=== PATIENT | female | born 1980 | race Caucasian/White ===

== ENCOUNTER 2016-05-22 16:44 | Emergency (ER) | payer MEDICARE, MEDICAID ==
[~2016-05-22] VITALS: Ht 172.7 cm; Wt 100.0 kg
[~2016-05-22 16:44] MED LIST: ALPHAGAN-P 5 ML5 ML OD; AMOXICILLIN 8751 TAB PO; ATENOLOL50 MG PO; BACTRIM DS 8001 TAB PO; BETOPTIC 0.5% 55 ML OD; CALCITRIOL PO; CEPHALEXIN500 M1 PO; CIPRO 500MG TA500 MG PO; CLEOCIN HC150 MG/CAP PO; DESYREL 50MG50 MG PO; DIAMOX SEQUELS500 M1 PO; DOXYCYCLINE 10100 MG PO; EPOGEN 2,002 MU/VIA1 IV; EPOGEN2000 U/ML; EPOGEN2000 U/ML IJ; FLEXERIL5 MG PO; FLONASE NASAL S16 GM NS; FOLIC ACID 11 MG/TA1 PO; GENTAMICIN EYE D5 ML OD; HOMATROPAIRE OD; HUMALOG PEN100 U/ML SQ; HUMALOG100 U/ML SQ; HUMULIN N 10100 U/ML IJ; HUMULIN R100 U/ML IJ; IBUPROFEN600 MG PO; INSULIN 50/5100 U/ML IJ; INSULIN HUMA100 U/M1 SC; LANTUS100 U/ML SC; LANTUS100 U/ML SQ; LASIX 80MG TABL80 MG PO; LEVAQUIN 5500 MG/TA1 PO; LIPITOR 10MG10 MG PO; LIPITOR 40MG TA40 MG; LIPITOR 40MG TA40 MG PO; LORTAB 5/500 501 TAB PO; NEPHROCAP PO; NO HOME MEDICATIONS; NORCO 325 MG-51 TAB PO; NORVASC 10MG10 MG; NORVASC 10MG10 MG PO; NOVLOG SQ; NOVOLOG 100U100 U/M1; NOVOLOG 100U100 U/M1 SC; NOVOLOG FLEX100 U/ML SQ; OMNICEF 300MG300 MG PO; PERCOCET 325 MG1 TA2 PO; PERCOCET 325 MG1 TAB PO; PERCOCET 5/321 UDTAB PO; PHOS LO; PHOS LO PO; PHOSLO667 MG PO; PRED FORTE 1 ML1 ML OD; PREDNISONE20 MG PO; PRILOSEC 20MG20 MG PO; PRINIVIL10 MG PO; PRINIVIL20 MG PO; PRINIVIL5 MG PO; ULTRAM 50MG TAB50 MG PO; VENTOLIN0.09 MG IH; ZESTRIL 10MG10 MG PO; ZOFRAN ODT4 MG PO; [UNRECOGNIZED DRUG - CODE] IV
[2016-05-22 16:52] VITALS: TEMP 98.9
[2016-05-22] MEDS ORDERED: LEVEMIR100 U/ML SQ (16:57)
[2016-05-22 17:25] LABS: PH 9 (5-8); URINE APPEARANCE Hazy; URINE BACTERIA Rare /hpf; URINE BILIRUBIN Negative (NEGATIVE); URINE BLOOD 1+ (NEGATIVE); URINE COLOR Yellow; URINE GLUCOSE 3+ (NEGATIVE); URINE KETONE Negative (NEGATIVE); URINE UROBILINOGEN Negative (NEGATIVE); URINE WBC 20-50 /hpf
[2016-05-22 17:42] LABS: BASO # 0.1 (0.0-0.2); BASO % 0.7 % (0.0-2.0); EOS # 0.7 (0.0-0.7); EOS % 6.6 % (0-4.0); GRAN # 5.8 (1.4-6.5); GRAN % 57.4 % (42.2-75.2); LYMPH # 2.5 (1.2-3.4); LYMPH % 25.1 % (20.0-51.0); MEAN CELL VOLUME 95 fl (80.0-100.0); MEAN CORPUSCULAR HGB CONC 34 g/dl (33.0-37.0); MEAN PLATELET VOLUME 10.2 fl (7.4-10.4); MONO % 9.9 % (1.7-9.3); PLATELET COUNT 244 K/mm3 (130-400); RED BLOOD COUNT 3.37 M/mm3 (4.10-5.30); REDCELL DISTRIBUTION WIDTH-CV 12.5 % (11.5-14.5); WHITE BLOOD COUNT 10.1 K/mm3 (4.8-10.8)
[2016-05-22 17:44] LABS: HEMATOCRIT 31.9 % (37.0-47.0); HEMOGLOBIN 10.9 g/dl (12.5-16.0); MEAN CORPUSCULAR HEMOGLOBIN 32 pg (27.0-31.0)
[2016-05-22 18:04] LABS: ADJUSTED CALCIUM 9.5 mg/dL (8.4-10.2); ALBUMIN 4.3 gm/dL (3.5-5.0); BILIRUBIN,TOTAL 0.8 mg/dL (0.0-1.0); C-REACTIVE PROTEIN 0.7 mg/dL (0.0-0.9); CALCIUM 9.7 mg/dL (8.4-10.2); POTASSIUM 4.1 mmol/L (3.4-5.0); TOTAL PROTEIN 7.9 gm/dL (6.4-8.2)
[2016-05-22 18:15] LABS: CREATININE, serum 4.71 mg/dL (0.52-1.25)
[2016-05-22] MEDS ORDERED: NORCO 325 MG-51 TAB PO (18:24)
[2016-05-22] MEDS ORDERED: CIPRO 500MG TA500 MG PO (18:24)
[2016-05-22 18:49] VITALS: BP 175/77; PULSE 84
== END 2016-05-22 18:50 | disposition home or self-care (01) ==
LOC: COL.ER 16:44
PROVIDERS: Emergency Medicine
DX: R10.2 Pelvic and perineal pain (principal); N18.6 End stage renal disease; Z99.2 Dependence on renal dialysis; R82.99 Other abnormal findings in urine
CPT/HCPCS: J1170

== ENCOUNTER 2016-08-01 21:18 | Emergency (ER) | payer MEDICARE, MEDICAID ==
[~2016-08-01] VITALS: Ht 172.7 cm; Wt 103.0 kg
[~2016-08-01 21:18] MED LIST changes: +LEVEMIR100 U/ML SQ
[2016-08-01 21:34] VITALS: TEMP 98.9
[2016-08-01] MEDS ORDERED: NORCO 325 MG-51 TAB PO (23:49)
[2016-08-01 23:52] VITALS: BP 189/87; PULSE 74
== END 2016-08-01 23:52 | disposition home or self-care (01) ==
LOC: COL.ER 21:18
DX: H40.9 Unspecified glaucoma (principal); H54.41 Blindness, right eye, normal vision left eye; N18.6 End stage renal disease; Z99.2 Dependence on renal dialysis

== ENCOUNTER 2016-09-11 23:31 | Emergency (ER) | payer MEDICARE, MEDICAID ==
[~2016-09-11] VITALS: Ht 172.7 cm; Wt 103.5 kg
[2016-09-11 23:33] VITALS: BP 196/83; TEMP 98.4
[2016-09-12] MEDS ORDERED: AMOXICILLIN875 MG PO (00:41)
[2016-09-12 01:20] VITALS: PULSE 91
== END 2016-09-12 01:20 | disposition home or self-care (01) ==
LOC: COL.ER 23:31
DX: J02.9 Acute pharyngitis, unspecified (principal); H65.192 Other acute nonsuppurative otitis media, left ear; E11.22 Type 2 diabetes mellitus with diabetic chronic kidney disease; N18.6 End stage renal disease; Z99.2 Dependence on renal dialysis; Z79.4 Long term (current) use of insulin; H54.41 Blindness, right eye, normal vision left eye; Z87.891 Personal history of nicotine dependence

== ENCOUNTER 2016-09-13 07:09 | Outpatient (CLI) | payer MEDICARE, MEDICAID ==
[2016-09-13] VITALS (8 sets, daily range): BP systolic 130–187; BP diastolic 50–100; PULSE 67–88; TEMP 97.7–98.1
[~2016-09-13] VITALS: Ht 172.8 cm; Wt 103.0 kg
[~2016-09-13 07:09] MED LIST changes: +AMOXICILLIN875 MG PO
== END 2016-09-13 15:18 | disposition home or self-care (01) ==
LOC: COL.CAR 07:09
DX: T82.848A Pain due to vascular prosthetic devices, implants and grafts, initial encounter (principal); T82.858A Stenosis of other vascular prosthetic devices, implants and grafts, initial encounter; I12.0 Hypertensive chronic kidney disease with stage 5 chronic kidney disease or end stage renal disease; E11.22 Type 2 diabetes mellitus with diabetic chronic kidney disease; N18.6 End stage renal disease; Z99.2 Dependence on renal dialysis; Z79.4 Long term (current) use of insulin
CPT/HCPCS: J7120; Q9967

== ENCOUNTER 2016-12-11 11:49 | Emergency (ER) | payer MEDICARE, MEDICAID ==
[~2016-12-11] VITALS: Ht 170.2 cm; Wt 106.0 kg
[2016-12-11 11:50] VITALS: BP 173/79; PULSE 80; TEMP 98
[2016-12-11] MEDS ORDERED: NORCO 325 MG-51 TAB PO (12:54)
[2016-12-11] MEDS ORDERED: AMOXICILLIN 8751 TAB PO (12:54)
== END 2016-12-11 13:38 | disposition home or self-care (01) ==
LOC: COL.ER 11:49
DX: J32.0 Chronic maxillary sinusitis (principal); Z79.4 Long term (current) use of insulin
CPT/HCPCS: J1170

== ENCOUNTER 2017-06-18 20:04 | Emergency (ER) | payer MEDICARE, MEDICAID ==
[~2017-06-18] VITALS: Ht 172.7 cm; Wt 116.0 kg
[2017-06-18 20:11] VITALS: TEMP 98.6
[2017-06-18] MEDS ORDERED: CLEOCIN HCL300 MG PO (22:07)
[2017-06-18 22:16] VITALS: BP 179/78; PULSE 97
== END 2017-06-18 22:21 | disposition home or self-care (01) ==
LOC: COL.ER 20:04
DX: S62.630B Displaced fracture of distal phalanx of right index finger, initial encounter for open fracture (principal); I10 Essential (primary) hypertension; E11.9 Type 2 diabetes mellitus without complications; Z79.4 Long term (current) use of insulin; Z87.891 Personal history of nicotine dependence; Z99.2 Dependence on renal dialysis; W23.0XXA Caught, crushed, jammed, or pinched between moving objects, initial encounter

== ENCOUNTER → 2017-06-22 | Outpatient (CLI) | payer MEDICARE, MEDICAID ==
[~2017-06-22] VITALS: Ht 172.7 cm; Wt 118.2 kg
[~2017-06-22] MED LIST changes: +CLEOCIN HCL300 MG PO; +IBU400 MG PO; +PROVENTIL0.09 MG/A1 IH; +ZESTRIL 20MG TA20 MG PO; +ZOFRAN 4MG T4 MG/TAB PO
[2017-06-22 09:33] VITALS: BP 152/50; PULSE 88
== END ==
LOC: LIGHT 08:44
DX: J45.909 Unspecified asthma, uncomplicated (principal); E11.9 Type 2 diabetes mellitus without complications; Z79.4 Long term (current) use of insulin; K21.9 Gastro-esophageal reflux disease without esophagitis; I10 Essential (primary) hypertension; Z68.41 Body mass index [BMI] 40.0-44.9, adult; Z71.3 Dietary counseling and surveillance
CPT/HCPCS: G0463

== ENCOUNTER → 2017-07-26 | Outpatient (CLI) | payer MEDICARE, MEDICAID ==
[~2017-07-26] VITALS: Ht 172.7 cm; Wt 119.5 kg
[2017-08-01 08:16] VITALS: BP 120/62; PULSE 92
== END ==
LOC: LIGHT 07-04 09:32
DX: Z01.89 Encounter for other specified special examinations (principal)

== ENCOUNTER → 2017-08-16 | Outpatient (CLI) | payer MEDICARE, MEDICAID ==
[~2017-08-16] VITALS: Ht 172.7 cm; Wt 117.3 kg
[2017-08-16 16:41] VITALS: BP 130/50; PULSE 92
== END ==
LOC: LIGHT 07-19 14:48
DX: J45.909 Unspecified asthma, uncomplicated (principal); E11.9 Type 2 diabetes mellitus without complications; Z79.4 Long term (current) use of insulin; K21.9 Gastro-esophageal reflux disease without esophagitis; I10 Essential (primary) hypertension; Z68.39 Body mass index [BMI] 39.0-39.9, adult; Z71.3 Dietary counseling and surveillance
CPT/HCPCS: G0463

== ENCOUNTER 2017-11-23 07:31 | Outpatient (CLI) | payer MEDICARE, MEDICAID ==
[2017-11-23] VITALS (9 sets, daily range): BP systolic 138–200; BP diastolic 46–76; PULSE 69–84; TEMP 97.9–98.2
[~2017-11-23] VITALS: Ht 172.8 cm; Wt 117.0 kg
== END 2017-11-23 13:45 | disposition home or self-care (01) ==
LOC: COL.CAR 07:31
DX: T80.89XA Other complications following infusion, transfusion and therapeutic injection, initial encounter (principal); I12.0 Hypertensive chronic kidney disease with stage 5 chronic kidney disease or end stage renal disease; E11.22 Type 2 diabetes mellitus with diabetic chronic kidney disease; N18.6 End stage renal disease; Z79.4 Long term (current) use of insulin
CPT/HCPCS: J1644; J2250; J3010; Q9967

== ENCOUNTER 2018-01-02 09:19 | Emergency (ER) | payer MEDICARE, MEDICAID ==
[~2018-01-02] VITALS: Ht 170.2 cm; Wt 112.7 kg
[2018-01-02 09:59] LABS: BASO # 0.1 (0.0-0.2); BASO % 0.5 % (0.0-2.0); EOS # 1.2 (0.0-0.7); EOS % 9.2 % (0-4.0); GRAN # 7.9 (1.4-6.5); GRAN % 59.1 % (42.2-75.2); LYMPH # 3.2 (1.2-3.4); LYMPH % 24.1 % (20.0-51.0); MEAN CELL VOLUME 97 fl (80.0-100.0); MEAN CORPUSCULAR HEMOGLOBIN 33 pg (27.0-31.0); MEAN CORPUSCULAR HGB CONC 34 g/dl (33.0-37.0); MEAN PLATELET VOLUME 10.2 fl (7.4-10.4); MONO # 0.9 (0.1-0.6); MONO % 6.6 % (1.7-9.3); PLATELET COUNT 251 K/mm3 (130-400); RED BLOOD COUNT 3.68 M/mm3 (4.10-5.30); REDCELL DISTRIBUTION WIDTH-CV 12.5 % (11.5-14.5)
[2018-01-02 10:01] LABS: HEMATOCRIT 35.5 % (37.0-47.0)
[2018-01-02 10:10] LABS: BILIRUBIN,TOTAL 0.5 mg/dL (0.0-1.0); C-REACTIVE PROTEIN 1.4 mg/dL (0.0-0.9); CALCIUM 9.4 mg/dL (8.4-10.2); POTASSIUM 4.9 mmol/L (3.4-5.0); TOTAL PROTEIN 7.6 gm/dL (6.4-8.2)
[2018-01-02 10:18] LABS: TROPONIN-I 0.015 ng/mL (0.000-0.034)
[2018-01-02 10:22] LABS: CREATININE, serum 11.6 mg/dL (0.52-1.25)
[2018-01-02 11:24] VITALS: BP 157/90; PULSE 75; TEMP 97.1
== END 2018-01-02 11:25 | disposition home or self-care (01) ==
LOC: COL.ER 09:19
PROVIDERS: Physician Assistant
DX: R10.13 Epigastric pain (principal); R11.10 Vomiting, unspecified; E11.22 Type 2 diabetes mellitus with diabetic chronic kidney disease; N18.6 End stage renal disease; Z99.2 Dependence on renal dialysis; Z79.4 Long term (current) use of insulin; Z98.51 Tubal ligation status
CPT/HCPCS: J1170; J2405

== ENCOUNTER 2018-01-06 10:16 | Day surgery (SDC) | payer MEDICARE, MEDICAID ==
[~2018-01-06] VITALS: Ht 170.2 cm; Wt 114.1 kg
[2018-01-06 11:09] VITALS: BP 179/84; PULSE 87; TEMP 97.1
[2018-01-06] MEDS ORDERED: NORCO 325 MG-101 TAB PO (11:28)
[2018-01-06] MEDS ORDERED: JANUVIA25 MG PO (11:29)
[2018-01-06 13:35] VITALS: BP 151/73; PULSE 79; TEMP 97.3
[2018-01-06 13:50] VITALS: BP 168/105; PULSE 84
[2018-01-06 14:05] VITALS: BP 161/77; PULSE 73
== END 2018-01-06 14:28 | disposition home or self-care (01) ==
LOC: SDCO 10:16
DX: K22.2 Esophageal obstruction (principal); K21.0 Gastro-esophageal reflux disease with esophagitis; E66.9 Obesity, unspecified; E11.22 Type 2 diabetes mellitus with diabetic chronic kidney disease; E11.21 Type 2 diabetes mellitus with diabetic nephropathy; I12.0 Hypertensive chronic kidney disease with stage 5 chronic kidney disease or end stage renal disease; N18.6 End stage renal disease; Z99.2 Dependence on renal dialysis; Z79.4 Long term (current) use of insulin; Z87.891 Personal history of nicotine dependence; K21.9 Gastro-esophageal reflux disease without esophagitis; G89.29 Other chronic pain; D64.9 Anemia, unspecified
CPT/HCPCS: J2704; J7030

== ENCOUNTER → 2018-04-25 | Outpatient (CLI) | payer MEDICARE, MEDICAID ==
[~2018-04-25] VITALS: Ht 170.2 cm; Wt 115.7 kg
[~2018-04-25] MED LIST changes: +JANUVIA25 MG PO; +NORCO 325 MG-101 TAB PO; +PROTONIX20 MG PO
[2018-04-25 14:30] VITALS: BP 150/50; PULSE 84
== END ==
LOC: LIGHT
DX: J45.909 Unspecified asthma, uncomplicated (principal); E11.65 Type 2 diabetes mellitus with hyperglycemia; K21.9 Gastro-esophageal reflux disease without esophagitis; I10 Essential (primary) hypertension; Z68.39 Body mass index [BMI] 39.0-39.9, adult; Z71.3 Dietary counseling and surveillance
CPT/HCPCS: G0463

== ENCOUNTER 2018-08-13 19:03 | Emergency (ER) | payer MEDICARE, MEDICAID ==
[~2018-08-13] VITALS: Ht 172.7 cm; Wt 115.0 kg
[2018-08-13 19:21] VITALS: TEMP 97.4
[2018-08-13 20:34] LABS: HEMOGLOBIN 11.9 g/dl (12.5-16.0); MEAN CELL VOLUME 101 fl (80.0-100.0); MEAN CORPUSCULAR HEMOGLOBIN 33 pg (27.0-31.0); MEAN CORPUSCULAR HGB CONC 33 g/dl (33.0-37.0); PLATELET COUNT 302 K/mm3 (130-400); RED BLOOD COUNT 3.62 M/mm3 (4.10-5.30); REDCELL DISTRIBUTION WIDTH-CV 13.5 % (11.5-14.5)
[2018-08-13 20:41] LABS: HEMATOCRIT 36.6 % (37.0-47.0)
[2018-08-13 20:44] LABS: ALBUMIN 4.3 gm/dL (3.5-5.0); BILIRUBIN,TOTAL 0.4 mg/dL (0.0-1.0); CALCIUM 10.4 mg/dL (8.4-10.2); MAGNESIUM 2.3 mg/dL (1.6-2.3); PHOSPHOROUS 6.9 mg/dL (2.5-4.5); POTASSIUM 4.2 mmol/L (3.4-5.0)
[2018-08-13 20:49] LABS: EOSINOPHIL 6 % (0-4); LYMPHOCYTE 32 % (20.0-51.0); NEUTROPHILS 57 % (42.0-75.2); PLATELET ESTIMATE NORMAL (NORMAL)
[2018-08-13 20:53] LABS: CREATININE, serum 10.39 (0.52-1.25)
[2018-08-13 23:50] VITALS: BP 165/69; PULSE 80
== END 2018-08-13 23:52 | disposition home or self-care (01) ==
LOC: COL.ER 19:03
PROVIDERS: Emergency Medicine
DX: R51 Headache (principal); E10.22 Type 1 diabetes mellitus with diabetic chronic kidney disease; N18.6 End stage renal disease; Z99.2 Dependence on renal dialysis; Z79.4 Long term (current) use of insulin
CPT/HCPCS: J0780; J1170

== ENCOUNTER 2018-08-15 15:48 | Inpatient (IN) | payer MEDICARE, MEDICAID ==
[~2018-08-15] VITALS: Ht 172.7 cm; Wt 119.8 kg
[2018-08-15 17:23] LABS: BASO # 0.1 (0.0-0.2); BASO % 0.7 % (0.0-2.0); EOS # 0.9 (0.0-0.7); EOS % 7.3 % (0-4.0); GRAN # 7.9 (1.4-6.5); GRAN % 62.5 % (42.2-75.2); LYMPH # 2.6 (1.2-3.4); LYMPH % 20.6 % (20.0-51.0); MEAN CELL VOLUME 99 fl (80.0-100.0); MEAN CORPUSCULAR HEMOGLOBIN 32 pg (27.0-31.0); MEAN CORPUSCULAR HGB CONC 32 g/dl (33.0-37.0); MEAN PLATELET VOLUME 10.3 fl (7.4-10.4); MONO # 1.1 (0.1-0.6); MONO % 8.4 % (1.7-9.3); PLATELET COUNT 249 K/mm3 (130-400); RED BLOOD COUNT 3.73 M/mm3 (4.10-5.30); REDCELL DISTRIBUTION WIDTH-CV 13.2 % (11.5-14.5)
[2018-08-15 17:32] LABS: ALBUMIN 4.3 gm/dL (3.5-5.0); BILIRUBIN,TOTAL 0.5 mg/dL (0.0-1.0); C-REACTIVE PROTEIN 1.8 mg/dL (0.0-0.9); MAGNESIUM 2.3 mg/dL (1.6-2.3); POTASSIUM 4.8 mmol/L (3.4-5.0); TOTAL PROTEIN 8.1 gm/dL (6.4-8.2)
[2018-08-15 17:33] LABS: CREATININE, serum 7.84 (0.52-1.25)
[2018-08-15] MEDS ORDERED: PREDFORTE5ML (17:37)
[2018-08-15] MEDS ORDERED: AKTOB 5 ML5 ML (17:38)
[2018-08-15 19:09] VITALS: BP 172/62; PULSE 80; TEMP 98.2
[2018-08-15] MEDS ORDERED: NORVASC 10MG10 MG PO (19:36)
[2018-08-15] MEDS ORDERED: NOVOLOG 100U100 U/M1 SQ (19:50)
[2018-08-15] MEDS ORDERED: COREG 6.256.25 MG/TA PO (19:54)
[2018-08-15] MEDS ORDERED: APRESOLINE 25MG25 MG PO (19:57)
[2018-08-15 20:23] VITALS: BP 172/62; PULSE 84; TEMP 98.2
[2018-08-15 23:55] VITALS: BP 137/52; BP 147/61; PULSE 77; TEMP 98
--- NOTE | 2018-08-16 00:14 | NUR ---
Patient resting in bed watching television. 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 Left eye has good vision. Patient states she had blood drained from behind her left eye yesterday 08/14/18, and she came to the ER d/t pressure/pain to behind left eye and a "migraine-like headache". PRN pain medication is being administered with slight relief. Patient states the pain isn't as bad as when she first came to the ER. States having the lights off help significantly. Will continue to monitor patient.
--- NOTE | 2018-08-16 03:53 | NUR ---
Patient called at 0030 and stated she felt her blood glucose level was low. Noted to be 58. Patient received a cup of OJ and some juliana crackers. Rechecked at 0115 and noted to be 64. Gave an apple with some peanut butter. At 0145 blood glucose level at 83. Patient has rested well since then. No c/o hypoglycemia since eating the apple/PB. Will continue to monitor.
[2018-08-16 04:00] VITALS: BP 125/52; PULSE 85; TEMP 97.6
[2018-08-16 06:25] LABS: BASO # 0.1 (0.0-0.2); BASO % 0.8 % (0.0-2.0); CALCIUM 9.6 mg/dL (8.4-10.2); EOS # 1.4 (0.0-0.7); EOS % 10.6 % (0-4.0); GRAN # 7.3 (1.4-6.5); GRAN % 56.4 % (42.2-75.2); HEMOGLOBIN 10.9 g/dl (12.5-16.0); LYMPH # 3.1 (1.2-3.4); LYMPH % 24.2 % (20.0-51.0); MEAN CELL VOLUME 103 fl (80.0-100.0); MEAN CORPUSCULAR HEMOGLOBIN 32 pg (27.0-31.0); MEAN CORPUSCULAR HGB CONC 31 g/dl (33.0-37.0); MEAN PLATELET VOLUME 10.4 fl (7.4-10.4); MONO % 7.7 % (1.7-9.3); PHOSPHOROUS 7.3 mg/dL (2.5-4.5); PLATELET COUNT 242 K/mm3 (130-400); RED BLOOD COUNT 3.37 M/mm3 (4.10-5.30); REDCELL DISTRIBUTION WIDTH-CV 13.5 % (11.5-14.5)
[2018-08-16 06:26] LABS: CREATININE, serum 9.25 (0.52-1.25)
[2018-08-16 06:28] LABS: HEMATOCRIT 34.8 % (37.0-47.0)
--- NOTE | 2018-08-16 06:53 | NUR ---
Report given to ALFREDA Barber.
[2018-08-16 08:08] VITALS: BP 146/55; PULSE 74; TEMP 97.5
--- NOTE | 2018-08-16 08:33 | NUR ---
REPORT FROM CHARANJIT GANT.
--- NOTE | 2018-08-16 08:33 | NUR ---
PT TO DIALYSIS AT THIS TIME PER WHEEL CHAIR BY STAFF. THIS IS NORMALLY AN OFF DAY FOR PATEINT. NEW ORDERS TO DIALYSIZE TODAY RECIEVED BY DIALYSIS NURSE.
--- NOTE | 2018-08-16 08:50 | NUR ---
PT A/O X4 AM MEDS GIVEN, FLUIDS RESTRICTED PER ORDERS AND REVIEWED WITH PATIENT. PT VERBALIZED THAT SHE IS NOT GOOD AT FOLLOWING FLUID RESTRICTIONS. WILL FOLLOW AND CONTINUE TO ASSIST PATIENT WITH REQUIREMENTS.
[2018-08-16 12:35] VITALS: BP 129/83; PULSE 72; TEMP 99
[2018-08-16 13:02] LABS: TSH w REFLEX 1.4 uIU/mL (0.465-4.680)
--- NOTE | 2018-08-16 14:32 | NUR ---
SW met with patient to discuss discharge planning. Patient lives independently at home with her children. Patient's PCP is Dr Nicholson and she obtains prescriptions from [facility]. Patient does not use any home health services or DME. Patient does not have a DPOA but would like the form. PACHECO provided DPOA form. PACHECO does not anticipate any discharge needs.
[2018-08-16 17:08] VITALS: BP 145/60; PULSE 68; TEMP 97.9
[2018-08-16 19:30] VITALS: BP 147/60; PULSE 72; TEMP 98
--- NOTE | 2018-08-16 22:00 | NUR ---
Patient in bed. Medicated with scheduled Insulin and [place] 10mg 1 tab for left eye/headache pain. Ice pack refilled for headache.
[2018-08-17] VITALS: BP 147/61; PULSE 78; TEMP 98.1
--- NOTE | 2018-08-17 02:38 | NUR ---
COMPLAINS OF HEADACHE. MEDICATED WITH NORCO 10MG 1 TAB AT THIS TIME. PATIENT WATCHING TV.
[2018-08-17 04:00] VITALS: BP 133/51; PULSE 72; TEMP 98.7
--- NOTE | 2018-08-17 04:50 | NUR ---
PATIENT CALLS FOR "2 TYLENOL" FOR LEFT HEADACHE. DOES NOT WANT THE DILAUDID, TOO EARLY TO REPEAT NORCO 10. ICE PACK PROVIDED, SHE DID NOT WANT DR. VIZCARRA CALLED FOR TYLENOL.
[2018-08-17 06:08] LABS: BASO # 0.1 (0.0-0.2); EOS # 1.5 (0.0-0.7); EOS % 13.9 % (0-4.0); GRAN # 5.2 (1.4-6.5); GRAN % 47.6 % (42.2-75.2); HEMOGLOBIN 11.4 g/dl (12.5-16.0); LYMPH # 3.1 (1.2-3.4); LYMPH % 28.1 % (20.0-51.0); MEAN CELL VOLUME 105 fl (80.0-100.0); MEAN CORPUSCULAR HEMOGLOBIN 33 pg (27.0-31.0); MEAN CORPUSCULAR HGB CONC 31 g/dl (33.0-37.0); MEAN PLATELET VOLUME 10.3 fl (7.4-10.4); MONO % 8.9 % (1.7-9.3); PLATELET COUNT 242 K/mm3 (130-400); RED BLOOD COUNT 3.51 M/mm3 (4.10-5.30); REDCELL DISTRIBUTION WIDTH-CV 13.5 % (11.5-14.5)
[2018-08-17 06:12] LABS: HEMATOCRIT 36.9 % (37.0-47.0)
[2018-08-17 06:20] LABS: ALBUMIN 3.8 gm/dL (3.5-5.0); CALCIUM 9.8 mg/dL (8.4-10.2); PHOSPHOROUS 6.9 mg/dL (2.5-4.5)
[2018-08-17 06:22] LABS: CREATININE, serum 7.97 (0.52-1.25)
[2018-08-17 06:23] LABS: POTASSIUM 5.8 mmol/L (3.4-5.0)
--- NOTE | 2018-08-17 06:45 | NUR ---
Patient is going to dialysis at this time. Chart off the floor with patient.
[2018-08-17 11:03] VITALS: BP 153/74; PULSE 93; TEMP 98.5
--- NOTE | 2018-08-17 11:25 | NUR ---
Patient is discharging home. Discharge instructions discussed with patient. No questions verbalized. INT discontinued. She is in a hurry to discharge for an appointment in [place] for her headaches. She knows she has dialysis on Tuesday. There was no appointments ordered. Copies of discharge instructions sent with patient. All belongings packed up and sent with patient. Patient walked out with this nurse.
[2018-08-18 16:43] LABS: KAPPA FREE LIGHT CHAIN-SERUM 16.9 mg/dL (())
== END 2018-08-17 11:30 | disposition home or self-care (01) | DRG 682 ==
LOC: COL.ER 15:48 → SURG 18:14
PROVIDERS: Emergency Medicine; ADMIT Internal Medicine Nephrology
PROC: 5A1D70Z Performance of Urinary Filtration, Intermittent, Less than 6 Hours Per Day (ICD-10-PCS; principal; 2018-08-15)
DX: I12.0 Hypertensive chronic kidney disease with stage 5 chronic kidney disease or end stage renal disease (principal); N18.6 End stage renal disease; I16.1 Hypertensive emergency; Z68.41 Body mass index [BMI] 40.0-44.9, adult; H57.12 Ocular pain, left eye; Z99.2 Dependence on renal dialysis; Z86.69 Personal history of other diseases of the nervous system and sense organs; D72.1 Eosinophilia; E66.9 Obesity, unspecified; E87.79 Other fluid overload
CPT/HCPCS: J1170; J1644; J1815; J2405; J7030

== ENCOUNTER 2018-09-15 08:32 | Day surgery (SDC) | payer MEDICARE, MEDICAID ==
[~2018-09-15] VITALS: Ht 167.6 cm; Wt 118.0 kg
[~2018-09-15 08:32] MED LIST changes: +AKTOB 5 ML5 ML; +APRESOLINE 25MG25 MG PO; +COREG 6.256.25 MG/TA PO; +NOVOLOG 100U100 U/M1 SQ; +PREDFORTE5ML OS
[2018-09-15 09:23] VITALS: BP 171/84; PULSE 88; TEMP 97.8
[2018-09-15 10:15] VITALS: BP 173/78; PULSE 100; TEMP 96.9
--- NOTE | 2018-09-15 10:15 | NUR ---
Patient returned to bay [facility]. Alert and oriented. Ambulated to chair without difficulty. Persisitant cough noted. Vital signs within range for patient. States she would like sprite and muffin. Tolerating well. Call childress within reach, will continue to monitor.
[2018-09-15] MEDS ORDERED: DEXILANT60 MG PO (10:26)
[2018-09-15 10:30] VITALS: BP 158/75; PULSE 93
--- NOTE | 2018-09-15 10:30 | NUR ---
Patient states her cough in improving. Vital signs remain stable. States she is feeing ready to get home. All safety maintained, will continue to monitor.
[2018-09-15 10:45] VITALS: BP 194/81; PULSE 94
--- NOTE | 2018-09-15 10:45 | NUR ---
Patient states she is feeling well and ready to go home. Discharge instructions reviewed with patient, all questions answered. IV removed per orders. Patient to get dressed at this time. Will continue to monitor.
--- NOTE | 2018-09-15 11:03 | NUR ---
Patient brought down to lobby via wheelchair. To be driven home by father Seymour.
== END 2018-09-15 11:03 | disposition home or self-care (01) ==
LOC: SDCO 08:32
DX: K21.0 Gastro-esophageal reflux disease with esophagitis (principal); K22.2 Esophageal obstruction; R13.10 Dysphagia, unspecified; I10 Essential (primary) hypertension; Z79.899 Other long term (current) drug therapy; J45.909 Unspecified asthma, uncomplicated; F41.9 Anxiety disorder, unspecified; G43.809 Other migraine, not intractable, without status migrainosus; H54.40 Blindness, one eye, unspecified eye; G89.29 Other chronic pain; M54.9 Dorsalgia, unspecified; E66.9 Obesity, unspecified; Z68.41 Body mass index [BMI] 40.0-44.9, adult; I77.0 Arteriovenous fistula, acquired; D64.9 Anemia, unspecified; E11.22 Type 2 diabetes mellitus with diabetic chronic kidney disease; I12.0 Hypertensive chronic kidney disease with stage 5 chronic kidney disease or end stage renal disease; N18.6 End stage renal disease; Z79.4 Long term (current) use of insulin; Z99.2 Dependence on renal dialysis
CPT/HCPCS: J2704; J3010; J7030

== ENCOUNTER 2018-10-13 11:29 | Emergency (ER) | payer MEDICARE, MEDICAID ==
[~2018-10-13] VITALS: Ht 172.7 cm; Wt 150.0 kg
[~2018-10-13 11:29] MED LIST changes: +DEXILANT60 MG PO
[2018-10-13 11:30] VITALS: TEMP 97.1
[2018-10-13] MEDS ORDERED: NORCO 325 MG-51 TAB PO (12:32)
[2018-10-13] MEDS ORDERED: FLEXERIL 1010 MG/TAB PO (12:55)
[2018-10-13 13:15] VITALS: BP 190/79; PULSE 72
== END 2018-10-13 13:16 | disposition home or self-care (01) ==
LOC: COL.ER 11:29
DX: M76.32 Iliotibial band syndrome, left leg (principal); M25.551 Pain in right hip; E11.22 Type 2 diabetes mellitus with diabetic chronic kidney disease; N18.9 Chronic kidney disease, unspecified; I12.9 Hypertensive chronic kidney disease with stage 1 through stage 4 chronic kidney disease, or unspecified chronic kidney disease; F17.210 Nicotine dependence, cigarettes, uncomplicated; Z98.51 Tubal ligation status; Z79.4 Long term (current) use of insulin; Z99.2 Dependence on renal dialysis

== ENCOUNTER → 2018-10-25 | Outpatient (CLI) | payer MEDICARE, MEDICAID ==
[~2018-10-25] MED LIST changes: +FLEXERIL 1010 MG/TAB PO
== END ==
LOC: COL.RAD 12:31
DX: J32.9 Chronic sinusitis, unspecified (principal); J34.89 Other specified disorders of nose and nasal sinuses; D72.829 Elevated white blood cell count, unspecified

== ENCOUNTER → 2018-10-27 | Outpatient (CLI) | payer MEDICARE, MEDICAID | LOC: COL.VAS 14:58 | DX: D72.829 Elevated white blood cell count, unspecified (principal) ==

== ENCOUNTER 2019-02-15 22:18 | Emergency (ER) | payer MEDICARE, MEDICAID ==
[~2019-02-15] VITALS: Ht 170.2 cm; Wt 119.0 kg
[2019-02-15 22:35] VITALS: BP 193/89; TEMP 98.2
[2019-02-15 22:58] LABS: BASO # 0.1 (0.0-0.2); BASO % 0.4 % (0.0-2.0); EOS # 0.7 (0.0-0.7); EOS % 5.3 % (0-4.0); GRAN # 7.8 (1.4-6.5); GRAN % 63.1 % (42.2-75.2); HEMOGLOBIN 11.6 g/dl (12.5-16.0); LYMPH # 2.8 (1.2-3.4); LYMPH % 22.8 % (20.0-51.0); MEAN CELL VOLUME 101 fl (80.0-100.0); MEAN CORPUSCULAR HEMOGLOBIN 32 pg (27.0-31.0); MEAN CORPUSCULAR HGB CONC 32 g/dl (33.0-37.0); MEAN PLATELET VOLUME 10.3 fl (7.4-10.4); MONO % 7.9 % (1.7-9.3); PLATELET COUNT 237 K/mm3 (130-400); RED BLOOD COUNT 3.59 M/mm3 (4.10-5.30); REDCELL DISTRIBUTION WIDTH-CV 13.4 % (11.5-14.5)
[2019-02-15 23:00] LABS: HEMATOCRIT 36.2 % (37.0-47.0)
[2019-02-15 23:07] LABS: ALBUMIN 4.3 gm/dL (3.5-5.0); BILIRUBIN,TOTAL 0.4 mg/dL (0.0-1.0); CALCIUM 9.6 mg/dL (8.4-10.2); CREATININE, serum 7.76 (0.52-1.25); MAGNESIUM 1.7 mg/dL (1.6-2.3); PHOSPHOROUS 4.2 mg/dL (2.5-4.5); POTASSIUM 4.7 mmol/L (3.4-5.0); TOTAL PROTEIN 7.7 gm/dL (6.4-8.2)
[2019-02-16 00:01] LABS: COLLECTION METHOD CLEAN CATCH
[2019-02-16 00:13] LABS: PH 9 (5-8); SQUAMOUS EPITHELIAL >50 /hpf; URINE APPEARANCE Cloudy; URINE BACTERIA Rare /hpf; URINE BILIRUBIN Negative (NEGATIVE); URINE BLOOD Negative (NEGATIVE); URINE COLOR Yellow; URINE GLUCOSE 3+ (NEGATIVE); URINE KETONE Negative (NEGATIVE); URINE LEUKOCYTE ESTERASE Negative (NEGATIVE); URINE NITRATE Negative (NEGATIVE); URINE PROTEIN(semi-quant) 2+ (NEGATIVE); URINE UROBILINOGEN Negative (NEGATIVE)
[2019-02-16 01:19] VITALS: PULSE 86
[2019-02-16] MEDS ORDERED: CIPRO 250MG TA250 MG PO (23:19)
[2019-02-16] MEDS ORDERED: PHENERGAN 25 TA25 MG PO (23:20)
== END 2019-02-16 01:19 | disposition home or self-care (01) ==
LOC: COL.ER 22:18
PROVIDERS: Physician Assistant
DX: G43.909 Migraine, unspecified, not intractable, without status migrainosus (principal); I12.0 Hypertensive chronic kidney disease with stage 5 chronic kidney disease or end stage renal disease; E11.22 Type 2 diabetes mellitus with diabetic chronic kidney disease; E11.65 Type 2 diabetes mellitus with hyperglycemia; N18.6 End stage renal disease; R19.7 Diarrhea, unspecified; J45.909 Unspecified asthma, uncomplicated; F17.210 Nicotine dependence, cigarettes, uncomplicated; Z98.890 Other specified postprocedural states; Z99.2 Dependence on renal dialysis; Z79.4 Long term (current) use of insulin
CPT/HCPCS: J0780; J1200; J1815; J2405

== ENCOUNTER 2019-02-16 21:58 | Emergency (ER) | payer MEDICARE, MEDICAID ==
[~2019-02-16] VITALS: Ht 172.7 cm; Wt 119.0 kg
[2019-02-16 22:02] VITALS: BP 191/80; TEMP 97.3
[2019-02-16 22:15] LABS: BASO # 0.1 (0.0-0.2); BASO % 0.4 % (0.0-2.0); EOS # 0.8 (0.0-0.7); EOS % 4.8 % (0-4.0); GRAN # 12.1 (1.4-6.5); GRAN % 71.1 % (42.2-75.2); HEMOGLOBIN 11.8 g/dl (12.5-16.0); LYMPH # 2.9 (1.2-3.4); MEAN CELL VOLUME 100 fl (80.0-100.0); MEAN CORPUSCULAR HEMOGLOBIN 33 pg (27.0-31.0); MEAN CORPUSCULAR HGB CONC 32 g/dl (33.0-37.0); MONO % 6.1 % (1.7-9.3); PLATELET COUNT 239 K/mm3 (130-400); RED BLOOD COUNT 3.63 M/mm3 (4.10-5.30); REDCELL DISTRIBUTION WIDTH-CV 13.4 % (11.5-14.5)
[2019-02-16 22:16] LABS: HEMATOCRIT 36.4 % (37.0-47.0)
[2019-02-16 22:27] LABS: ALBUMIN 4.4 gm/dL (3.5-5.0); BILIRUBIN,TOTAL 0.4 mg/dL (0.0-1.0); C-REACTIVE PROTEIN 2.7 mg/dL (0.0-0.9); MAGNESIUM 1.8 mg/dL (1.6-2.3); PHOSPHOROUS 5.7 mg/dL (2.5-4.5); POTASSIUM 4.7 mmol/L (3.4-5.0)
[2019-02-16] MEDS ORDERED: CIPRO 250MG TA250 MG PO (23:19)
[2019-02-16] MEDS ORDERED: PHENERGAN 25 TA25 MG PO (23:20)
[2019-02-17 00:34] VITALS: PULSE 89
== END 2019-02-17 00:31 | disposition home or self-care (01) ==
LOC: COL.ER 21:58
PROVIDERS: Emergency Medicine
DX: N39.0 Urinary tract infection, site not specified (principal); R11.10 Vomiting, unspecified; I12.0 Hypertensive chronic kidney disease with stage 5 chronic kidney disease or end stage renal disease; N18.6 End stage renal disease; Z99.2 Dependence on renal dialysis; Z79.4 Long term (current) use of insulin
CPT/HCPCS: J0780; J1170; J2405; Q9967

== ENCOUNTER 2019-04-12 19:48 | Emergency (ER) | payer MEDICARE, MEDICAID ==
[~2019-04-12] VITALS: Ht 172.7 cm; Wt 117.9 kg
[~2019-04-12 19:48] MED LIST changes: +CIPRO 250MG TA250 MG PO; +PHENERGAN 25 TA25 MG PO
[2019-04-12 19:54] VITALS: TEMP 99.1
[2019-04-12 20:51] VITALS: BP 173/73
[2019-04-12] MEDS ORDERED: MEDROL 4MG DOSPA4 MG PO (22:01)
[2019-04-12] MEDS ORDERED: DOXYCYCLINE 10100 MG PO (22:01)
[2019-04-12 22:19] VITALS: PULSE 107
== END 2019-04-12 22:17 | disposition home or self-care (01) ==
LOC: COL.ER 19:48
DX: J40 Bronchitis, not specified as acute or chronic (principal); J44.9 Chronic obstructive pulmonary disease, unspecified; E11.22 Type 2 diabetes mellitus with diabetic chronic kidney disease; I12.0 Hypertensive chronic kidney disease with stage 5 chronic kidney disease or end stage renal disease; N18.6 End stage renal disease; Z99.2 Dependence on renal dialysis; Z87.891 Personal history of nicotine dependence; Z79.4 Long term (current) use of insulin
CPT/HCPCS: J7512

== ENCOUNTER 2019-10-19 05:51 | Outpatient (CLI) | payer MEDICARE, MEDICAID ==
[2019-10-19] VITALS (9 sets, daily range): BP systolic 129–150; BP diastolic 59–70; PULSE 77–88; TEMP 98.5
[~2019-10-19] VITALS: Ht 172.8 cm; Wt 121.7 kg
[~2019-10-19 05:51] MED LIST changes: +MEDROL 4MG DOSPA4 MG PO
--- NOTE | 2019-10-19 08:00 | NUR ---
Pt to procedure.
--- NOTE | 2019-10-19 08:35 | NUR ---
SEE MERGE DOCUMENTATION FOR MEDICATION ADMINISTRATION TIMES AND INTRA/POST PROCEDURE SEDATION ASSESSMENTS.
--- NOTE | 2019-10-19 11:25 | NUR ---
Discharge instructions given to pt.pt verbalizes understanding.INT removed,catheter tip intact.Pt escorted out via wheelchair by this nurse.
== END 2019-10-19 11:46 | disposition home or self-care (01) ==
LOC: COL.CAR 05:51
DX: T82.898A Other specified complication of vascular prosthetic devices, implants and grafts, initial encounter (principal); E11.22 Type 2 diabetes mellitus with diabetic chronic kidney disease; N18.6 End stage renal disease; Z99.2 Dependence on renal dialysis; Z88.1 Allergy status to other antibiotic agents; Z88.8 Allergy status to other drugs, medicaments and biological substances; Z79.4 Long term (current) use of insulin; F17.210 Nicotine dependence, cigarettes, uncomplicated
CPT/HCPCS: C1894; J1644; J2250; J3010; J7050; Q9967

== ENCOUNTER 2019-11-12 04:03 | Inpatient (IN) | payer MEDICARE, MEDICAID ==
[~2019-11-12] VITALS: Ht 172.7 cm; Wt 119.7 kg
[2019-11-12 04:36] LABS: BASO # 0.1 (0.0-0.2); BASO % 0.6 % (0.0-2.0); EOS # 1.7 (0.0-0.7); EOS % 9.6 % (0-4.0); GRAN # 10.2 (1.4-6.5); GRAN % 56.6 % (42.2-75.2); HEMOGLOBIN 12.1 g/dl (12.5-16.0); LYMPH # 4.7 (1.2-3.4); LYMPH % 25.9 % (20.0-51.0); MEAN CELL VOLUME 98 fl (80.0-100.0); MEAN CORPUSCULAR HEMOGLOBIN 32 pg (27.0-31.0); MEAN CORPUSCULAR HGB CONC 33 g/dl (33.0-37.0); MEAN PLATELET VOLUME 9.7 fl (7.4-10.4); MONO # 1.2 (0.1-0.6); MONO % 6.9 % (1.7-9.3); PLATELET COUNT 265 K/mm3 (130-400); RED BLOOD COUNT 3.76 M/mm3 (4.10-5.30); REDCELL DISTRIBUTION WIDTH-CV 13.1 % (11.5-14.5)
[2019-11-12 04:45] LABS: ACETONE,SERUM NEGATIVE
[2019-11-12 04:47] LABS: ALANINE AMINOTRANSFERASE 22 U/L (4-34); ALBUMIN 4.6 gm/dL (3.5-5.0); ALKALINE PHOSPHATASE 326 U/L (50-136); ANION GAP 14 mmol/L (7-16); AST,SGOT 23 U/L (15-37); BILIRUBIN,TOTAL 0.5 mg/dL (0.0-1.0); BLOOD UREA NITROGEN 49 mg/dL (7-17); C-REACTIVE PROTEIN 1.6 mg/dL (0.0-0.9); CALCIUM 9.7 mg/dL (8.4-10.2); CARBON DIOXIDE 26 mmol/L (22-30); CHLORIDE 95 mmol/L (98-107); GLUCOSE 228 mg/dL (74-106); LIPASE 79 U/L (23-300); MAGNESIUM 2.2 mg/dL (1.6-2.3); POTASSIUM 4.6 mmol/L (3.4-5.0); SODIUM 135 mmol/L (137-145); TOTAL PROTEIN 8.7 gm/dL (6.4-8.2)
[2019-11-12 10:42] VITALS: BP 136/53; PULSE 80; TEMP 98.2
[2019-11-12 12:00] VITALS: BP 136/53; PULSE 80; TEMP 98.2
--- NOTE | 2019-11-12 12:00 | NUR ---
Patient admitted to [facility]. rounded. Orders obtained. Inital, 5 page & med rec completed. Patient falls asleep easy. Tele on. Int. Restricted extremity bracelet on.
[2019-11-12 15:53] VITALS: BP 164/61; PULSE 87; TEMP 98.2
[2019-11-12] MEDS ORDERED: RENVELA800 MG PO ×2 (16:24→18:52)
[2019-11-12] MEDS ORDERED: VELPHORO PO (16:25)
--- NOTE | 2019-11-12 16:38 | NUR ---
Pilot Boat Captain met with the patient to complete initial intake. The patient lives in [place] with her two teen kids ages 14 and 15. The patient denies DME use and is independent with ADLs. The patient does not have a PCP but is interested in setting up with Dr. Kiser. The patient receives medicaitons from [facility] with no difficulties. The patient does not have advanced directives but was interested in a DPOA-HC form. Form provided. The patient states she is not and no children over 18. She state she would have her mother, Aixa # [phone], make any decision. The patient plans to return home at discharge, her girlfriend will provide transportation. PACHECO contacted Dr. Kiser's office. Sapna spoke to the patient via speaker phone and will give the patient information to Dr. Kiser to review. If he will accept the patient, Sapna with contact this PACHECO to set up appointment. Will continue to monitor.
[2019-11-12] MEDS ORDERED: NOVOLOG 100U100 U/M1 SQ (18:48)
[2019-11-12 19:30] VITALS: BP 176/77; PULSE 82; TEMP 98.3
--- NOTE | 2019-11-12 19:41 | NUR ---
Patient resting in bed feeling better this eveing. Less anxious/frustrated. This afternoon she did threaten to leave AMA. Nikki Carl called this nurse and wanted exceptions made to diet for patient to stay. Diet Pepsi provided to patient & ice chip per her request. Patient also provided with fan at bedside. Patient requested something for anxiety & Xanax was ordered & given. Patient tolerated dinner. home insulin regiment. Home med list corrections made & re ordered per Verbal order. Plans for Egd tmrw after noon after dialysis. Npo oooo. Bedside report to Raquel.
--- NOTE | 2019-11-12 21:15 | NUR ---
PT IN BED. WAS GIVEN SNACK EARLIER PER HER REQUEST. HAS INT TO RIGHT AC, FLUSHES EASILY. IS ALERT AND ORIENTED X4. CONSENT OBTAINED FOR EGD IN AM. HS INSULIN GIVEN WELL NORCO FOR PAIN. BP ELEVATED, HYDRALAZINE GIVEN. IS TO BE NPO AFTER MIDNIGHT.
--- NOTE | 2019-11-12 23:00 | NUR ---
OUT IN HALLWAY, GOES TO VENDING MACHINE FOR SNACK.
[2019-11-12 23:21] VITALS: BP 184/74; PULSE 86; TEMP 98.5
--- NOTE | 2019-11-13 | NUR ---
NPO for procedure in the afternoon.
[2019-11-13 04:00] VITALS: BP 152/66; PULSE 88; TEMP 98.1
--- NOTE | 2019-11-13 06:00 | NUR ---
Scheduled PO med given with sip of water.
[2019-11-13 07:11] VITALS: BP 157/65; PULSE 81; TEMP 98.2
--- NOTE | 2019-11-13 07:39 | NUR ---
Patient up in room. Verbalizes that she is tired of being in the hospital and it is making her feel confined. Feels that she has extra fluid on her and would like to get dialysis done to try to feel a little better. Patient at this time is in agreeance of the plan of dialysis this morning and then EGD this afternoon. Patient removed telemetry box and does not want to wear. Requests to take a shower at this time. Patient was initially refusing to have IV site covered for shower, explain why we cover the IV when showering, patient agrees to have IV covered. Gets in shower at this time. Denies additional needs.
--- NOTE | 2019-11-13 08:55 | NUR ---
Patient ambulates across [place] to dialysis with Katrina.
[2019-11-13 09:22] LABS: BASO # 0.1 (0.0-0.2); BASO % 0.7 % (0.0-2.0); EOS # 1.2 (0.0-0.7); EOS % 8.8 % (0-4.0); GRAN # 8.1 (1.4-6.5); GRAN % 61.4 % (42.2-75.2); HEMATOCRIT 32.9 % (37.0-47.0); HEMOGLOBIN 10.7 g/dl (12.5-16.0); LYMPH % 22.5 % (20.0-51.0); MEAN CELL VOLUME 99 fl (80.0-100.0); MEAN CORPUSCULAR HEMOGLOBIN 32 pg (27.0-31.0); MEAN CORPUSCULAR HGB CONC 33 g/dl (33.0-37.0); MEAN PLATELET VOLUME 9.9 fl (7.4-10.4); MONO # 0.8 (0.1-0.6); MONO % 6.1 % (1.7-9.3); PLATELET COUNT 215 K/mm3 (130-400); RED BLOOD COUNT 3.33 M/mm3 (4.10-5.30); REDCELL DISTRIBUTION WIDTH-CV 13.3 % (11.5-14.5)
[2019-11-13 09:33] LABS: ALBUMIN 4.1 gm/dL (3.5-5.0); CALCIUM 9.3 mg/dL (8.4-10.2); CREATININE, serum 13.17 (0.52-1.25); PHOSPHOROUS 6.7 mg/dL (2.5-4.5); POTASSIUM 4.9 mmol/L (3.4-5.0)
--- NOTE | 2019-11-13 09:53 | NUR ---
Initial visit; Patient appeared to dedline spiritual care.
--- NOTE | 2019-11-13 10:25 | NUR ---
Remains in dialysis, sleeping in recliner chair.
[2019-11-13 12:00] VITALS: BP 165/81; PULSE 88; TEMP 98.8
--- NOTE | 2019-11-13 12:29 | NUR ---
Receive call from Katrina in dialysis. Patient has completed dialysis and returned to room at this time.
--- NOTE | 2019-11-13 12:37 | NUR ---
Sitting up in bed talking on cell phone. Is ready to get EGD done so that she can go home. Denies needs at this time.
--- NOTE | 2019-11-13 12:55 | NUR ---
Sitting up in bed watching TV. Is ready to have EGD completed. Provided gown for the patient to change into. Patient denies any additional needs at this time.
--- NOTE | 2019-11-13 13:45 | NUR ---
Patient to endoscopy via cart at this time.
--- NOTE | 2019-11-13 14:21 | NUR ---
Dr. Benitez notified that patient EGD completed and she is requesting to go home as soon as possible. Dr. Benitez agrees to discharge.
[2019-11-13 14:29] VITALS: BP 182/100; PULSE 88; TEMP 98.6
--- NOTE | 2019-11-13 14:31 | NUR ---
Waste Water Operator attempted to contact Sapna with Dr. Kiser's office regarding patient acceptance, left message.
--- NOTE | 2019-11-13 14:31 | NUR ---
Patient back to room from endoscopy via cart. Ambulates from cart back into bed in room. Denies pain. Patient says that she is going to leave here shortly. Explain that we would like for her to eat and drink and we will work on discharge paperwork. Patient says that her sister will be coming to pick her up. Sitting up in bed drinking diet Pepsi and provided patient with sandwich tray.
--- NOTE | 2019-11-13 14:41 | NUR ---
Sapna with Dr. Kiser's office contacted . Dr. Kiser has not informed Sapna of his decision as of yet. Will continue to monitor.
[2019-11-13 14:43] VITALS: BP 190/87; PULSE 92
--- NOTE | 2019-11-13 14:44 | NUR ---
Patient sitting up in bed. Tolerates eating and drinking without difficulty. Requesting to leave as soon as possible. Explain that we will go over her discharge instructions and remove IV at this time. Patient says that her blood pressures are where they normally run.
[2019-11-13 14:56] VITALS: BP 197/94; PULSE 87
--- NOTE | 2019-11-13 14:56 | NUR ---
Patient BP elevated, patient says that it is not elevated for her. Offered to administer hydralazine as prescribed and patient declines to take. Discharge instructions were reviewed with the patient. Questions answered. Patient verbalizes understanding and signs discharge paperwork. Discharge packet provided to the patient. Patient has all belongings. Has called sister to come to pick her up.
--- NOTE | 2019-11-13 14:58 | NUR ---
The patient is to discharge home today, 11/12. SW informed the patient and the patient's nurse that Sapna with Dr. Kiser's office will be contacting the patient and this SW once a decision is made. The patient was in agreeance. There are no additional needs at this time.
--- NOTE | 2019-11-13 15:00 | NUR ---
Patient explains that her sister will be here to pick her up any minute and that she is ready to go. Assisted out to POV via wheel chair with all personal belongings.
== END 2019-11-13 15:00 | disposition home or self-care (01) | DRG 391 ==
LOC: COL.ER 04:03 → SURG 07:13
PROVIDERS: Emergency Medicine; Internal Medicine Gastroenterology; ADMIT Internal Medicine Nephrology
PROC: 5A1D70Z Performance of Urinary Filtration, Intermittent, Less than 6 Hours Per Day (ICD-10-PCS; 2019-11-12)
PROC: 0DJ08ZZ Inspection of Upper Intestinal Tract, Via Natural or Artificial Opening Endoscopic (ICD-10-PCS; principal; 2019-11-13 14:00)
DX: K29.30 Chronic superficial gastritis without bleeding (principal); N18.6 End stage renal disease; I12.0 Hypertensive chronic kidney disease with stage 5 chronic kidney disease or end stage renal disease; K20.9 Esophagitis, unspecified; H54.413A Blindness right eye category 3, normal vision left eye; E66.9 Obesity, unspecified; E11.22 Type 2 diabetes mellitus with diabetic chronic kidney disease; J45.909 Unspecified asthma, uncomplicated; K27.9 Peptic ulcer, site unspecified, unspecified as acute or chronic, without hemorrhage or perforation; G89.29 Other chronic pain; M54.9 Dorsalgia, unspecified; F17.210 Nicotine dependence, cigarettes, uncomplicated; D63.1 Anemia in chronic kidney disease; K21.9 Gastro-esophageal reflux disease without esophagitis; Z98.51 Tubal ligation status; K30 Functional dyspepsia
CPT/HCPCS: C9113; J1170; J1644; J1815; J2405; J2550; J2704; J7030; Q5105

== ENCOUNTER 2019-12-24 09:08 | Inpatient (IN) | payer MEDICARE, MEDICAID ==
[~2019-12-24] VITALS: Ht 170.2 cm; Wt 125.6 kg
[~2019-12-24 09:08] MED LIST changes: +RENVELA800 MG PO; +VELPHORO PO
[2019-12-24 09:50] LABS: BASO # 0.1 (0.0-0.2); BASO % 0.6 % (0.0-2.0); EOS # 1.2 (0.0-0.7); EOS % 6.6 % (0-4.0); GRAN # 13.7 (1.4-6.5); HEMOGLOBIN 10.9 g/dl (12.5-16.0); LYMPH # 2.3 (1.2-3.4); LYMPH % 12.2 % (20.0-51.0); MEAN CELL VOLUME 100 fl (80.0-100.0); MEAN CORPUSCULAR HEMOGLOBIN 32 pg (27.0-31.0); MEAN CORPUSCULAR HGB CONC 32 g/dl (33.0-37.0); MONO # 1.3 (0.1-0.6); MONO % 7.2 % (1.7-9.3); PLATELET COUNT 247 K/mm3 (130-400); RED BLOOD COUNT 3.44 M/mm3 (4.10-5.30); REDCELL DISTRIBUTION WIDTH-CV 13.6 % (11.5-14.5)
[2019-12-24 09:51] LABS: HEMATOCRIT 34.4 % (37.0-47.0)
[2019-12-24 10:06] LABS: ALBUMIN 4.6 gm/dL (3.5-5.0); BILIRUBIN,TOTAL 0.8 mg/dL (0.0-1.0); CREATININE, serum 10.22 (0.52-1.25); MAGNESIUM 2.3 mg/dL (1.6-2.3); PHOSPHOROUS 5.4 mg/dL (2.5-4.5); TOTAL PROTEIN 8.3 gm/dL (6.4-8.2)
[2019-12-24 16:00] VITALS: BP 178/44; PULSE 96; TEMP 98
--- NOTE | 2019-12-24 16:30 | NUR ---
PATIENT ADMITED INTO ROOM 307 FROM ER WITH SOA/FLUID OVERLOAD. PATIENT IS SCHEDULED FOR DIALYSIS TODAY BUT STATES SHE CAN'T WAIT TILL 1530. PATIENT SENT TO DIALYSIS STRAIGHT FROM ER AND THEN TO MEDICAL. HEAD TO TOE ASSESSMENT COMPLETE. LEFT FORARM FISTULA, RIGHT FORARM IV TO INT. RENAL DIET. FLUID RESTRICTION. INDEPENDENT IN ROOM. BLIND IN RIGHT EYE. TELE INPLACE.
[2019-12-24] MEDS ORDERED: NORCO 325 MG-7.1 TAB PO (17:02)
--- NOTE | 2019-12-24 19:30 | NUR ---
Bedside shift report received, assumed care for diesel roller operator. Assessment complete. A&Ox3. VS stable. INT to right FA flushes without difficulty. Denies nausea/shortness of breath. C/O pain to back rating 8/10 on pain scale-described as throbbing-norco given per dr order. Requesting anxiety med as well-given per order. Plan of care discussed for this shift to include pain control/monitoring on tele. Verbalizes understanding. Call light in reach. Will monitor.
[2019-12-24 20:09] VITALS: BP 131/58; PULSE 91; TEMP 99.2
[2019-12-24 21:27] VITALS: TEMP 99.2
[2019-12-24 23:40] VITALS: BP 150/65; PULSE 82; TEMP 98.7
[2019-12-24 23:44] VITALS: BP 150/65
[2019-12-25 03:39] VITALS: BP 155/59; PULSE 81; TEMP 98.1
--- NOTE | 2019-12-25 03:40 | NUR ---
Called with c/o pain to back-rating pain 8/10 on pain scale-described as throbbing. Hydrocodone given per dr order. VS remain WNL-slight hypertensive-acceptable per hydralazine parameters. Denies nausea/shortness of breath. Call light in reach. Will monitor.
--- NOTE | 2019-12-25 05:30 | NUR ---
Patient refusing to wear tele. States she will not put it back on even after getting new stickers and helping remove adhesive. Notified telehealth case manager. Will notify provider as well.
[2019-12-25 06:58] LABS: BASO # 0.1 (0.0-0.2); BASO % 0.6 % (0.0-2.0); EOS # 1.1 (0.0-0.7); EOS % 9.9 % (0-4.0); GRAN # 6.7 (1.4-6.5); GRAN % 58.4 % (42.2-75.2); LYMPH # 2.6 (1.2-3.4); LYMPH % 22.5 % (20.0-51.0); MEAN CELL VOLUME 103 fl (80.0-100.0); MEAN CORPUSCULAR HGB CONC 32 g/dl (33.0-37.0); MEAN PLATELET VOLUME 10.4 fl (7.4-10.4); MONO # 0.9 (0.1-0.6); MONO % 8.2 % (1.7-9.3); PLATELET COUNT 226 K/mm3 (130-400); RED BLOOD COUNT 2.85 M/mm3 (4.10-5.30)
[2019-12-25 07:09] LABS: ALBUMIN 4.1 gm/dL (3.5-5.0); CALCIUM 9.2 mg/dL (8.4-10.2); CREATININE, serum 8.06 (0.52-1.25); POTASSIUM 5.5 mmol/L (3.4-5.0)
[2019-12-25 07:12] LABS: HEMATOCRIT 29.2 % (37.0-47.0); HEMOGLOBIN 9.2 g/dl (12.5-16.0); MEAN CORPUSCULAR HEMOGLOBIN 32 pg (27.0-31.0)
[2019-12-25 07:26] VITALS: BP 143/54; PULSE 81; TEMP 98.6
--- NOTE | 2019-12-25 07:55 | NUR ---
Pt assessment complete. Pt is sitting up in bed eating upon entry, she is A/O x4. Her breathing is even and unlabored on RA. Pt denies SOB. No pain at this time. Refusing tele this am. No N/V. No needs at this time. Call light within reach.
--- NOTE | 2019-12-25 12:19 | NUR ---
Discharge paperwork and instructions reviewed with patient. All questions answered at this time. IV to RAC dc'd catheter tip intact. Pt wheeled out at this itme.
== END 2019-12-25 12:20 | disposition home or self-care (01) | DRG 640 ==
LOC: COL.ER 09:08 → MEDICAL 11:16
PROVIDERS: Emergency Medicine; Nurse Practitioner; ADMIT Internal Medicine Nephrology
PROC: 5A1D70Z Performance of Urinary Filtration, Intermittent, Less than 6 Hours Per Day (ICD-10-PCS; principal; 2019-12-25)
DX: E87.5 Hyperkalemia (principal); N18.6 End stage renal disease; I12.0 Hypertensive chronic kidney disease with stage 5 chronic kidney disease or end stage renal disease; E87.70 Fluid overload, unspecified; M54.9 Dorsalgia, unspecified; G89.29 Other chronic pain; D64.9 Anemia, unspecified; J45.909 Unspecified asthma, uncomplicated; G43.909 Migraine, unspecified, not intractable, without status migrainosus; E66.9 Obesity, unspecified; E21.3 Hyperparathyroidism, unspecified; Z98.51 Tubal ligation status; F32.9 Major depressive disorder, single episode, unspecified; F17.210 Nicotine dependence, cigarettes, uncomplicated; H54.41 Blindness, right eye, normal vision left eye
CPT/HCPCS: J1644; J1815; J2405; J7030; Q5105

== ENCOUNTER 2020-03-17 07:57 | Emergency (ER) | payer MEDICARE, MEDICAID ==
[~2020-03-17] VITALS: Ht 172.7 cm; Wt 119.0 kg
[~2020-03-17 07:57] MED LIST changes: +NORCO 325 MG-7.1 TAB PO
[2020-03-17 08:08] VITALS: TEMP 97.8
[2020-03-17 08:58] LABS: ALBUMIN 4.6 gm/dL (3.5-5.0); BILIRUBIN,TOTAL 0.5 mg/dL (0.0-1.0); CREATININE, serum 12.13 (0.52-1.25); POTASSIUM 5.1 mmol/L (3.4-5.0); TOTAL PROTEIN 8.1 gm/dL (6.4-8.2)
[2020-03-17 09:04] LABS: BASO # 0.1 (0.0-0.2); BASO % 0.7 % (0.0-2.0); EOS # 0.7 (0.0-0.7); EOS % 4.5 % (0-4.0); GRAN # 10.2 (1.4-6.5); GRAN % 66.8 % (42.2-75.2); HEMATOCRIT 38.8 % (37.0-47.0); HEMOGLOBIN 12.5 g/dl (12.5-16.0); LYMPH # 3.2 (1.2-3.4); LYMPH % 21.2 % (20.0-51.0); MEAN CELL VOLUME 100 fl (80.0-100.0); MEAN CORPUSCULAR HEMOGLOBIN 32 pg (27.0-31.0); MEAN CORPUSCULAR HGB CONC 32 g/dl (33.0-37.0); MONO % 6.3 % (1.7-9.3); PLATELET COUNT 315 K/mm3 (130-400); RED BLOOD COUNT 3.88 M/mm3 (4.10-5.30); REDCELL DISTRIBUTION WIDTH-CV 13.2 % (11.5-14.5)
[2020-03-17 09:09] LABS: TROPONIN-I 0.013 ng/mL (0.000-0.035)
[2020-03-17 09:13] VITALS: BP 184/80; PULSE 95
== END 2020-03-17 09:13 | disposition left against medical advice (07) ==
LOC: COL.ER 07:57
PROVIDERS: Emergency Medicine
DX: N18.6 End stage renal disease (principal); R10.9 Unspecified abdominal pain; M54.9 Dorsalgia, unspecified; Z88.1 Allergy status to other antibiotic agents; Z88.6 Allergy status to analgesic agent; Z79.4 Long term (current) use of insulin
CPT/HCPCS: J1200; J2765

== ENCOUNTER → 2021-01-28 | Outpatient (CLI) | payer MEDICARE, MEDICAID | LOC: COL.RAD 01-21 08:00 | DX: K44.9 Diaphragmatic hernia without obstruction or gangrene (principal) | CPT/HCPCS: A9541 ==

== ENCOUNTER 2021-02-05 18:31 | Emergency (ER) | payer MEDICARE, MEDICAID ==
[2021-03-23] MEDS ORDERED: FLEXERIL 1010 MG/TAB PO (11:40)
== END 2021-02-05 20:21 | disposition left against medical advice (07) ==
LOC: COL.ER 18:31
DX: R52 Pain, unspecified (principal)

== ENCOUNTER 2021-02-06 07:23 | Emergency (ER) | payer MEDICARE, MEDICAID ==
[~2021-02-06] VITALS: Ht 170.2 cm; Wt 121.5 kg
[2021-02-06 09:00] LABS: BASO # 0.1 K/mm3 (0.0-0.2); BASO % 0.7 % (0.0-2.0); EOS # 0.7 K/mm3 (0.0-0.7); EOS % 5.2 % (0-4.0); GRAN # 6.5 K/mm3 (1.4-6.5); GRAN % 48.2 % (42.2-75.2); LYMPH # 4.9 K/mm3 (1.2-3.4); LYMPH % 36.4 % (20.0-51.0); MEAN CELL VOLUME 98 fl (80.0-100.0); MEAN CORPUSCULAR HEMOGLOBIN 32 pg (27.0-31.0); MEAN CORPUSCULAR HGB CONC 33 g/dl (33.0-37.0); MEAN PLATELET VOLUME 9.8 fl (7.4-10.4); MONO # 1.2 K/mm3 (0.1-0.6); MONO % 9.1 % (1.7-9.3); PLATELET COUNT 265 K/mm3 (130-400); RED BLOOD COUNT 3.76 M/mm3 (4.10-5.30); REDCELL DISTRIBUTION WIDTH-CV 13.3 % (11.5-14.5)
[2021-02-06 09:03] LABS: HEMATOCRIT 36.9 % (37.0-47.0)
[2021-02-06 09:18] LABS: ALBUMIN 3.6 gm/dL (3.5-5.0); BILIRUBIN,TOTAL 0.4 mg/dL (0.2-1.2); CALCIUM 8.9 mg/dL (8.4-10.2); CREATININE, serum 7.7 mg/dL (0.57-1.11); TOTAL PROTEIN 7.5 gm/dL (6.2-8.1)
[2021-02-06 11:30] VITALS: BP 152/74; PULSE 90; TEMP 97.9
== END 2021-02-06 11:30 | disposition home or self-care (01) ==
LOC: COL.ER 07:23
PROVIDERS: Student in an Organized Health Care Education/Training Program
DX: R10.13 Epigastric pain (principal); R11.2 Nausea with vomiting, unspecified; R74.8 Abnormal levels of other serum enzymes; I12.0 Hypertensive chronic kidney disease with stage 5 chronic kidney disease or end stage renal disease; N18.6 End stage renal disease; E11.22 Type 2 diabetes mellitus with diabetic chronic kidney disease; J45.909 Unspecified asthma, uncomplicated; G89.29 Other chronic pain; M54.9 Dorsalgia, unspecified; Z79.4 Long term (current) use of insulin; Z79.899 Other long term (current) drug therapy; Z99.2 Dependence on renal dialysis; Z79.84 Long term (current) use of oral hypoglycemic drugs; Z79.1 Long term (current) use of non-steroidal anti-inflammatories (NSAID)
CPT/HCPCS: J2405

== ENCOUNTER 2021-03-22 17:16 | Emergency (ER) | payer MEDICARE, MEDICAID ==
[~2021-03-22] VITALS: Ht 172.7 cm; Wt 118.0 kg
[2021-03-22 17:55] VITALS: TEMP 97.2
[2021-03-22] MEDS ORDERED: FLEXERIL 1010 MG/TAB PO (19:26)
[2021-03-22 20:19] VITALS: BP 196/89; PULSE 95
[2021-03-23] MEDS ORDERED: FLEXERIL 1010 MG/TAB PO (11:40)
== END 2021-03-22 20:19 | disposition home or self-care (01) ==
LOC: COL.ER 17:16
DX: M70.62 Trochanteric bursitis, left hip (principal); I12.0 Hypertensive chronic kidney disease with stage 5 chronic kidney disease or end stage renal disease; N18.6 End stage renal disease; M79.671 Pain in right foot; E11.21 Type 2 diabetes mellitus with diabetic nephropathy; E11.40 Type 2 diabetes mellitus with diabetic neuropathy, unspecified; E11.319 Type 2 diabetes mellitus with unspecified diabetic retinopathy without macular edema; N18.9 Chronic kidney disease, unspecified; Z99.2 Dependence on renal dialysis; D63.1 Anemia in chronic kidney disease; J45.909 Unspecified asthma, uncomplicated; G89.29 Other chronic pain; M54.9 Dorsalgia, unspecified; F17.210 Nicotine dependence, cigarettes, uncomplicated; Z79.899 Other long term (current) drug therapy; Z79.4 Long term (current) use of insulin; Z79.84 Long term (current) use of oral hypoglycemic drugs; Z79.1 Long term (current) use of non-steroidal anti-inflammatories (NSAID)

== ENCOUNTER 2021-04-09 03:08 | Emergency (ER) | payer MEDICARE, MEDICAID ==
[~2021-04-09] VITALS: Ht 172.7 cm; Wt 119.0 kg
[2021-04-09 03:46] VITALS: TEMP 98.9
[2021-04-09 04:28] LABS: BASO # 0.1 K/mm3 (0.0-0.2); BASO % 0.6 % (0.0-2.0); EOS # 0.7 K/mm3 (0.0-0.7); EOS % 3.9 % (0.0-4.0); GRAN # 12.1 K/mm3 (1.4-6.5); GRAN % 73.5 % (42.2-75.2); HEMOGLOBIN 11.7 g/dl (12.5-16.0); LYMPH # 2.4 K/mm3 (1.2-3.4); LYMPH % 14.7 % (20.0-51.0); MEAN CELL VOLUME 95 fl (80.0-100.0); MEAN CORPUSCULAR HEMOGLOBIN 31 pg (27-31); MEAN CORPUSCULAR HGB CONC 33 g/dl (33.0-37.0); MEAN PLATELET VOLUME 9.4 fl (7.4-10.4); MONO # 1.1 K/mm3 (0.1-0.6); MONO % 6.9 % (1.7-9.3); PLATELET COUNT 311 K/mm3 (130-400); RED BLOOD COUNT 3.74 M/mm3 (4.10-5.30)
[2021-04-09 04:30] LABS: HEMATOCRIT 35.4 % (37.0-47.0)
[2021-04-09 04:49] LABS: ALBUMIN 3.9 gm/dL (3.5-5.0); BILIRUBIN,TOTAL 0.5 mg/dL (0.2-1.2); CREATININE, serum 10.47 mg/dL (0.57-1.11); POTASSIUM 4.2 mmol/L (3.5-4.5); TOTAL PROTEIN 7.8 gm/dL (6.2-8.1)
[2021-04-09] MEDS ORDERED: AMOXICILLIN 8751 TAB PO (06:53)
[2021-04-09] MEDS ORDERED: ZOFRAN ODT4 MG PO (06:53)
[2021-04-09 08:02] VITALS: BP 169/72; PULSE 90
== END 2021-04-09 08:02 | disposition home or self-care (01) ==
LOC: COL.ER 03:08
PROVIDERS: Emergency Medicine
DX: K52.9 Noninfective gastroenteritis and colitis, unspecified (principal); D72.829 Elevated white blood cell count, unspecified; E11.22 Type 2 diabetes mellitus with diabetic chronic kidney disease; I12.0 Hypertensive chronic kidney disease with stage 5 chronic kidney disease or end stage renal disease; N18.6 End stage renal disease; Z99.2 Dependence on renal dialysis; Z79.4 Long term (current) use of insulin; Z79.899 Other long term (current) drug therapy
CPT/HCPCS: J1170; J2270; J2405; J7040

== ENCOUNTER 2021-04-15 07:48 | Emergency (ER) | payer MEDICARE, MEDICAID ==
[~2021-04-15] VITALS: Ht 172.7 cm; Wt 119.8 kg
[2021-04-15 08:03] VITALS: TEMP 98.5
[2021-04-15] MEDS ORDERED: ZOFRAN ODT4 MG PO (09:21)
[2021-04-15 09:38] VITALS: BP 186/83; PULSE 94
[2021-05-01] MEDS ORDERED: PEPCID AC20 MG PO (11:38)
== END 2021-04-15 09:38 | disposition home or self-care (01) ==
LOC: COL.ER 07:48
DX: K59.00 Constipation, unspecified (principal); E11.22 Type 2 diabetes mellitus with diabetic chronic kidney disease; N18.6 End stage renal disease; I12.0 Hypertensive chronic kidney disease with stage 5 chronic kidney disease or end stage renal disease; F17.210 Nicotine dependence, cigarettes, uncomplicated; Z99.2 Dependence on renal dialysis; Z79.4 Long term (current) use of insulin; Z79.899 Other long term (current) drug therapy
CPT/HCPCS: J2212

== ENCOUNTER 2021-04-18 07:17 | Emergency (ER) | payer MEDICARE, MEDICAID ==
[~2021-04-18] VITALS: Ht 172.7 cm; Wt 123.0 kg
[2021-04-18 07:30] VITALS: BP 197/88; TEMP 98.4
[2021-04-18] MEDS ORDERED: NORCO 325 MG-51 TAB PO (09:20)
[2021-04-18] MEDS ORDERED: FLEXERIL 1010 MG/TAB PO (09:20)
[2021-04-18 09:45] VITALS: PULSE 100
[2021-05-01] MEDS ORDERED: PEPCID AC20 MG PO (11:38)
== END 2021-04-18 09:45 | disposition home or self-care (01) ==
LOC: COL.ER 07:17
DX: M25.552 Pain in left hip (principal); E11.22 Type 2 diabetes mellitus with diabetic chronic kidney disease; I12.0 Hypertensive chronic kidney disease with stage 5 chronic kidney disease or end stage renal disease; N18.6 End stage renal disease; Z99.2 Dependence on renal dialysis; Z79.4 Long term (current) use of insulin; Z79.899 Other long term (current) drug therapy; Z79.84 Long term (current) use of oral hypoglycemic drugs
CPT/HCPCS: J1170; J2270

== ENCOUNTER 2021-04-24 11:17 | Emergency (ER) | payer MEDICARE, MEDICAID ==
[~2021-04-24] VITALS: Ht 172.7 cm; Wt 118.2 kg
[2021-04-24 11:19] VITALS: BP 193/84; PULSE 93; TEMP 98
[2021-04-24] MEDS ORDERED: NORCO 325 MG-7.1 TAB PO (11:54)
[2021-05-01] MEDS ORDERED: PEPCID AC20 MG PO (11:38)
== END 2021-04-24 13:36 | disposition home or self-care (01) ==
LOC: COL.ER 11:17
DX: S83.91XA Sprain of unspecified site of right knee, initial encounter (principal); E11.22 Type 2 diabetes mellitus with diabetic chronic kidney disease; I12.0 Hypertensive chronic kidney disease with stage 5 chronic kidney disease or end stage renal disease; N18.6 End stage renal disease; G43.909 Migraine, unspecified, not intractable, without status migrainosus; E11.40 Type 2 diabetes mellitus with diabetic neuropathy, unspecified; E66.9 Obesity, unspecified; J44.9 Chronic obstructive pulmonary disease, unspecified; D63.1 Anemia in chronic kidney disease; F32.A Depression, unspecified; F17.210 Nicotine dependence, cigarettes, uncomplicated; Z99.2 Dependence on renal dialysis; Z79.4 Long term (current) use of insulin; Z79.899 Other long term (current) drug therapy; X50.1XXA Overexertion from prolonged static or awkward postures, initial encounter; W18.30XA Fall on same level, unspecified, initial encounter; Y93.K1 Activity, walking an animal
CPT/HCPCS: J3010; L1830; L1846

== ENCOUNTER 2021-04-25 05:55 | Emergency (ER) | payer MEDICARE, MEDICAID ==
[~2021-04-25] VITALS: Ht 172.7 cm; Wt 118.2 kg
[2021-04-25 05:58] VITALS: BP 193/87; PULSE 98; TEMP 97.9
[2021-05-01] MEDS ORDERED: PEPCID AC20 MG PO (11:38)
== END 2021-04-25 07:15 | disposition home or self-care (01) ==
LOC: COL.ER 05:55
DX: M25.561 Pain in right knee (principal); E11.22 Type 2 diabetes mellitus with diabetic chronic kidney disease; I12.0 Hypertensive chronic kidney disease with stage 5 chronic kidney disease or end stage renal disease; N18.6 End stage renal disease; J44.9 Chronic obstructive pulmonary disease, unspecified; E66.9 Obesity, unspecified; E11.42 Type 2 diabetes mellitus with diabetic polyneuropathy; D63.1 Anemia in chronic kidney disease; F32.A Depression, unspecified; Z99.2 Dependence on renal dialysis; Z79.4 Long term (current) use of insulin; Z79.899 Other long term (current) drug therapy; W01.0XXA Fall on same level from slipping, tripping and stumbling without subsequent striking against object, initial encounter

== ENCOUNTER 2021-05-04 11:47 | Observation (INO) | payer MEDICARE, MEDICAID ==
[~2021-05-04] VITALS: Ht 172.7 cm; Wt 125.4 kg
[~2021-05-04 11:47] MED LIST changes: +PEPCID AC20 MG PO
[2021-05-04 13:20] VITALS: BP 168/74; PULSE 68
[2021-05-04 13:22] VITALS: BP 181/81; PULSE 95; TEMP 98.3
--- NOTE | 2021-05-04 13:22 | NUR ---
SEE MERGE FOR ALL MEDICATION ADMINISTRATION TIMES/DOSAGES AND INTRA/POST PROCEDURE SEDATION ASSESSMENTS.
[2021-05-04] MEDS ORDERED: DEXILANT60 MG PO (13:31)
--- NOTE | 2021-05-04 15:19 | NUR ---
Report received from Tori Thao pt to be admitted.Report given to TORI Santana.
[2021-05-04 17:55] VITALS: BP 184/90; PULSE 93; TEMP 98.5
--- NOTE | 2021-05-04 18:28 | NUR ---
PATIENT REQUESTED TO DC HD TX 37 MINS EARLY & DR. VIZCARRA NOTIFIED. REMOVED 3.8L OF FLUID & O2 DC'D WITH STABLE SAT O2 OF 98% ON RA FOR 30 MINS MONITORING. REPORT GIVEN TO NURSE DEL & PATIENT OK TO DC POST HD TX. 1802 IV HEPLOCK REMOVED BY THIS NURSE & KAYLI CDI @ [facility]. NURSE KB IN WITH DC INSTRUC, PATIENT VERBALIZED AN UNDERSTANDING & SIGNED. 1820 PATIENT LEFT VIA WC WITH THIS NURSE TO VEHICLE WITH FAMILY MEMBER AWAITING.
== END 2021-05-04 18:20 | disposition home or self-care (01) ==
LOC: COL.CAR 11:47 → SURG 15:06
PROVIDERS: ADMIT Internal Medicine Nephrology
DX: T82.858A Stenosis of other vascular prosthetic devices, implants and grafts, initial encounter (principal); J95.89 Other postprocedural complications and disorders of respiratory system, not elsewhere classified; R09.02 Hypoxemia; E11.22 Type 2 diabetes mellitus with diabetic chronic kidney disease; E11.21 Type 2 diabetes mellitus with diabetic nephropathy; I12.0 Hypertensive chronic kidney disease with stage 5 chronic kidney disease or end stage renal disease; N18.6 End stage renal disease; D63.1 Anemia in chronic kidney disease; F17.210 Nicotine dependence, cigarettes, uncomplicated; E83.39 Other disorders of phosphorus metabolism; E66.9 Obesity, unspecified; J44.9 Chronic obstructive pulmonary disease, unspecified; K21.00 Gastro-esophageal reflux disease with esophagitis, without bleeding; Z99.2 Dependence on renal dialysis; Z79.4 Long term (current) use of insulin; Z79.899 Other long term (current) drug therapy
CPT/HCPCS: G0378; G0379; J1644; J2250; J3010; J7030; Q9967

== ENCOUNTER 2022-08-05 21:45 | Inpatient (IN) | payer MEDICARE, MEDICAID ==
[~2022-08-05] VITALS: Ht 172.7 cm; Wt 114.7 kg
[~2022-08-05 21:45] MED LIST changes: +SEROQUEL 2525 MG/TAB PO; +TUMS ULTRA ST1000 MG PO; +XANAX 1MG1 MG PO
[2022-08-05 22:25] LABS: BASO # 0.2 K/mm3 (0.0-0.2); EOS # 0.1 K/mm3 (0.0-0.7); EOS % 0.7 % (0.0-4.0); GRAN # 12.3 K/mm3 (1.4-6.5); GRAN % 75.8 % (42.2-75.2); LYMPH # 2.4 K/mm3 (1.2-3.4); LYMPH % 14.7 % (20.0-51.0); MEAN CELL VOLUME 107 fl (80.0-100.0); MEAN CORPUSCULAR HGB CONC 33 g/dl (33.0-37.0); MEAN PLATELET VOLUME 9.9 fl (7.4-10.4); MONO # 1.1 K/mm3 (0.1-0.6); PLATELET COUNT 258 K/mm3 (130-400); RED BLOOD COUNT 5.29 M/mm3 (4.10-5.30)
[2022-08-05 22:27] LABS: HEMATOCRIT 56.5 % (37.0-47.0); HEMOGLOBIN 18.5 g/dl (12.5-16.0); MEAN CORPUSCULAR HEMOGLOBIN 35 pg (27-31)
[2022-08-05 23:43] LABS: ALBUMIN 4.2 gm/dL (3.5-5.0); BILIRUBIN,TOTAL 0.5 mg/dL (0.2-1.2); C-REACTIVE PROTEIN 1.11 mg/dL (0.00-0.50); CALCIUM 9.3 mg/dL (8.4-10.2); CREATININE, serum 7.95 mg/dL (0.57-1.11); TOTAL PROTEIN 9.1 gm/dL (6.2-8.1)
[2022-08-05 23:45] LABS: POTASSIUM 5.9 mmol/L (3.5-4.5)
[2022-08-05 23:49] LABS: TROPONIN-I 0.011 ng/mL (0.00-0.033)
[2022-08-06] VITALS (9 sets, daily range): BP systolic 62–115; BP diastolic 29–54; PULSE 79–91; TEMP 97.3–98.4
--- NOTE | 2022-08-06 02:14 | NUR ---
Pt recently arrived to the floor from ED. She is awake, alert and oriented with complaints of lower abd cramping. PRN pain medication given. Admission complete and pt oriented to her room. No needs, will continue to monitor
--- NOTE | 2022-08-06 06:09 | NUR ---
Dr Benitez notified of pt low BP. New orders for labs and to continue to monitor pt.
--- NOTE | 2022-08-06 06:15 | NUR ---
Put pt head of bed down. hearing aid technician in to draw labs. Informed pt that I cannot give her anything for pain at this time. Pt now asking for something for nausea and her diarrhea. Will notify oncoming physician. Pt set up on automatic BP every 5 minutes. Will continue to monitor
[2022-08-06 06:36] LABS: BASO # 0.1 K/mm3 (0.0-0.2); BASO % 0.6 % (0.0-2.0); EOS # 0.3 K/mm3 (0.0-0.7); EOS % 1.7 % (0.0-4.0); GRAN # 9.8 K/mm3 (1.4-6.5); GRAN % 65.4 % (42.2-75.2); HEMOGLOBIN 17.1 g/dl (12.5-16.0); LYMPH # 3.6 K/mm3 (1.2-3.4); MEAN CELL VOLUME 106 fl (80.0-100.0); MEAN CORPUSCULAR HEMOGLOBIN 34 pg (27-31); MEAN CORPUSCULAR HGB CONC 32 g/dl (33.0-37.0); MEAN PLATELET VOLUME 10.2 fl (7.4-10.4); MONO # 1.2 K/mm3 (0.1-0.6); MONO % 7.8 % (1.7-9.3); PLATELET COUNT 226 K/mm3 (130-400); RED BLOOD COUNT 5.01 M/mm3 (4.10-5.30); REDCELL DISTRIBUTION WIDTH-CV 15.4 % (11.5-14.5)
[2022-08-06 06:40] LABS: HEMATOCRIT 53.1 % (37.0-47.0)
[2022-08-06 06:49] LABS: ALBUMIN 3.8 gm/dL (3.5-5.0); CALCIUM 8.6 mg/dL (8.4-10.2); CREATININE, serum 8.59 mg/dL (0.57-1.11); PHOSPHOROUS 2.9 mg/dL (2.3-4.7); POTASSIUM 4.6 mmol/L (3.5-4.5)
--- NOTE | 2022-08-06 08:38 | NUR ---
NIGHT NURSE REPORTED PT WAS HYPOTENSIVE OVERNIGHT. PT BLOOD PRESSURE CURRENTLY 85/41, ASYMPTOMATIC, PT RESTING IN THE BED LYING FLAT. VITALS MATERIALS SCHEDULER FOR C3TDEXWE VITALS. PT DAUGHTER IS IN THE ROOM RESTING. PT DID REQUEST SODA THIS AM, 200ML'S GIVEN.
--- NOTE | 2022-08-06 10:54 | NUR ---
PACHECO met with the patient to discuss discharge plan. The patient lives in [place] with her 18-year-old son and 17-year-old daughter. She shares that her daughter is with her sister while she is here. She reports independence with ADLs and has a rollator available, if needed. The patient's PCP is Dr. Tremaine Kiser and she obtains her medications from [facility]. The patient does not have a DPOA-HC, but she was interested in obtaining a form. PACHECO provided. The patient states that she is not and confirms that she has two children and that her son is 18. SW educated her on how her son would be her legal next of kin. The patient states that she would not want him to make her decisions and that she would want her mother, Aixa Herrera (ph#[phone]), to make her decisions for her. SW educated her on how she would need to complete the DPOA-HC. The patient verbalized understanding. The patient plans to return home upon discharge. She shares that hospitals are not her thing and she plans to leave the hospital around [id number] today. *Discharge plan: home with children*
--- NOTE | 2022-08-06 11:08 | NUR ---
Initial visit: Telecommunications Engineer stopped by room on rounds. Pt was resting and content. Pt has no needs at this time. Telecommunications Engineer will follow up as needed.
--- NOTE | 2022-08-06 13:42 | NUR ---
PT WITH INCREASED NAUSEA THIS AFTERNOON. EPISODES OF VOMITTING. PT STATED PAIN TO LOWER ABDOMEN, PRN TYLENOL GIVEN. PRN ZOFRAN GIVE FOR NAUSEA. PT STATED SHE WANTED TO REFUSE LUNCH TIME INSULIN DUE TO NOT WANTING TO EAT, BLOOD SUGAR AT THAT TIME WAS 177.
--- NOTE | 2022-08-06 14:53 | NUR ---
PT BEING TAKEN DOWN TO DIALYSIS AT THIS TIME.
--- NOTE | 2022-08-06 18:23 | NUR ---
PT BACK FROM DIALYSIS, DIALYSIS NURSE REPORTED PT TOLERATED WELL, NO FLUIDS WERE TAKEN OFF TODAY. PT IS IN ROOM GETTING READY TO ORDER DINNER. STATED HER ABDOMINAL PAIN IS DOING MUCH BETTER. LAST BP WAS 113/52. PT STATED SHE DOES NOT FEEL LIGHT HEADED OR DIZZY, HAS A STEADY GAIT AND AMBULATING WELL IN THE ROOM.
--- NOTE | 2022-08-06 18:35 | NUR ---
0800-KALYN NORRIS NOTIFIED OF PTS HYPOTENTION. KALYN STATES SHE WILL COME EVALUATE PT.
--- NOTE | 2022-08-06 19:42 | NUR ---
Called and spoke to Dr. Benitez at approximately 1900. Pt adamant that she was going to leave. I discussed the reasons for staying as well as the risks associated with leaving against medical advise. Informed consent to refuse treatment form signed by pt and shift nurse. Pt left at 1930.
== END 2022-08-06 19:30 | disposition left against medical advice (07) | DRG 391 ==
LOC: COL.ER 21:45 → MEDICAL 08-06 00:02
PROVIDERS: Family Medicine; ADMIT Internal Medicine Nephrology
DX: R10.9 Unspecified abdominal pain (principal); N18.6 End stage renal disease; I12.0 Hypertensive chronic kidney disease with stage 5 chronic kidney disease or end stage renal disease; E11.22 Type 2 diabetes mellitus with diabetic chronic kidney disease; N18.9 Chronic kidney disease, unspecified; Z53.29 Procedure and treatment not carried out because of patient's decision for other reasons; F32.A Depression, unspecified; D63.1 Anemia in chronic kidney disease; K21.00 Gastro-esophageal reflux disease with esophagitis, without bleeding; G43.909 Migraine, unspecified, not intractable, without status migrainosus; G89.29 Other chronic pain; M54.9 Dorsalgia, unspecified; E66.9 Obesity, unspecified; F17.210 Nicotine dependence, cigarettes, uncomplicated; Z20.822 Contact with and (suspected) exposure to COVID-19; J44.9 Chronic obstructive pulmonary disease, unspecified; E83.39 Other disorders of phosphorus metabolism; I95.9 Hypotension, unspecified; D72.829 Elevated white blood cell count, unspecified; H54.61 Unqualified visual loss, right eye, normal vision left eye; Z79.4 Long term (current) use of insulin; Z99.2 Dependence on renal dialysis; Z68.38 Body mass index [BMI] 38.0-38.9, adult; Z23 Encounter for immunization
CPT/HCPCS: C9113; J1815; J2270; J2405; J7050

== ENCOUNTER 2023-05-04 06:32 | Outpatient (CLI) | payer MEDICARE, MEDICAID ==
[2023-05-04] VITALS (7 sets, daily range): BP systolic 89–149; BP diastolic 44–109; PULSE 74–89; TEMP 98.3
[~2023-05-04] VITALS: Ht 172.8 cm; Wt 115.3 kg
[~2023-05-04 06:32] MED LIST changes: +PROMETHAZINE12.5 M5 PO; +PROTONIX 40MG T40 MG PO
[2023-05-04] MEDS ORDERED: OZEMPIC0.25 MG/02 SQ (07:52)
[2023-05-04] MEDS ORDERED: TUMS500 MG PO (07:54)
--- NOTE | 2023-05-04 08:58 | NUR ---
Refer to [facility] [employer] report for procedural sedation/notes
[2023-05-04] MEDS ORDERED: Iohexol 300 - 100 ML VIAL IV ONE (09:52)
[2023-05-04] MEDS ORDERED: fentaNYL 50 MCG/ML 2 ML VIAL IV SCH (09:54)
[2023-05-04] MEDS ORDERED: Midazolam 2 MG/2 ML VIAL IV SCH (09:54)
--- NOTE | 2023-05-04 11:30 | NUR ---
Radiologist called per pt request to leave by 1115.Spoke with alix Montano to dc home at that time.Discharge instructions given to pt.Pt verbalizes understanding.Pt escorted out via wheelchair by this nurse.
== END 2023-05-04 12:40 ==
LOC: COL.CAR 06:32
DX: T82.898A Other specified complication of vascular prosthetic devices, implants and grafts, initial encounter (principal); I77.0 Arteriovenous fistula, acquired; I12.0 Hypertensive chronic kidney disease with stage 5 chronic kidney disease or end stage renal disease; N18.6 End stage renal disease; E11.22 Type 2 diabetes mellitus with diabetic chronic kidney disease; F17.210 Nicotine dependence, cigarettes, uncomplicated
CPT/HCPCS: J1644; J2250; J3010; Q9967

== ENCOUNTER → 2023-08-10 | Outpatient (CLI) | payer MEDICARE, MEDICAID ==
[~2023-08-10] MED LIST changes: +OZEMPIC0.25 MG/02 SQ; +TUMS500 MG PO
== END ==
LOC: COL.VAS 12:01
DX: Z01.818 Encounter for other preprocedural examination (principal); I51.7 Cardiomegaly; N18.6 End stage renal disease; Z99.2 Dependence on renal dialysis